=== PATIENT | male | born 1940 | race Caucasian/White ===

== ENCOUNTER 2020-06-09 13:31 | Inpatient (IN) ==
[2020-06-09] MEDS ORDERED: Naloxone 0.4 MG/ML INJ IVP PRN (16:33)
[2020-06-09] MEDS ORDERED: Perflutren Lipid Microsphere 1.3 ML in 0.9 % Sodium Chloride 8.7 ML IVP PRN (16:42)
[2020-06-09] MEDS ORDERED: Nitroglycerin 0.4 MG TAB.SUBL SL PRN (16:45)
[2020-06-09] MEDS ORDERED: *HR* Dextrose 50 % in Water (Vial) 50 ML VIAL IVP PRN (18:53)
[2020-06-09] MEDS ORDERED: D5% in Water 1,000 ML IVC PRN (18:53)
[2020-06-09] MEDS ORDERED: Dextrose Gel 15 GM/37.5 ML TUBE PO PRN ×2 (18:53)
[2020-06-09] MEDS ORDERED: Furosemide 20 MG/2 ML VIAL IVP ONE (20:00)
[2020-06-09] MEDS ORDERED: Insulin LISPRO 300 UNITS/3 ML VIAL SUBQ SCH (21:00)
[2020-06-09] MEDS: rOPINIRole 0.25 MG TABLET PO SCH (21:31)
[2020-06-09] MEDS ORDERED: Melatonin 3 MG TABLET PO PRN (21:35)
[2020-06-10 02:45] LABS: Basophils % 0.3 %; Eosinophils # 0.1 K/mcL (0.0-0.6); Eosinophils % 0.7 %; Hematocrit 37.5 % (37.5-50.1); Hemoglobin 11.8 g/dL (12.9-16.9); Immature Granulocytes % 0.3 % (0-4); Lymphocytes # 1.8 K/mcL (0.6-4.6); Lymphocytes % 12.7 %; Mean Corpuscular HGB Conc 31.5 g/dL (31.6-35.5); Mean Corpuscular Hemoglobin 27.8 pg (28.0-33.3); Mean Corpuscular Volume 88.4 fL (83.0-100.0); Monocytes # 1.4 K/mcL (0.0-1.3); Monocytes % 9.9 %; Neutrophils # 10.6 K/mcL (1.6-8.9); Platelet Count 215 K/mcL (140-400); Red Blood Count 4.24 M/mcL (4.19-5.50); Red Cell Distribution Width 14.3 % (11.5-14.5); Segmented Neutrophils % 76.1 %; White Blood Count 13.9 K/mcL (4.3-11.1)
[2020-06-10 02:53] LABS: INR 1.4; Prothrombin Time 15.8 Seconds (9.4-12.1)
[2020-06-10 02:56] LABS: Activated Partial Thrombo Time 27.7 Seconds (26.0-36.0)
[2020-06-10 03:07] LABS: Calcium 9.3 mg/dL (8.6-10.3)
[2020-06-10] MEDS ORDERED: *HR* Heparin 5,000 UNIT/ML VIAL IVP PRN (03:17)
[2020-06-10] MEDS: Heparin 25,000UNIT/250ML 1/2NS 25,000 UNIT/250 ML IV.SOLN IVC SCH (04:20)
[2020-06-10 04:44] LABS: INR 1.4; Prothrombin Time 16.2 Seconds (9.4-12.1)
[2020-06-10 04:47] LABS: Heparin anti-factor XA UFH < 0.04 IU/mL (0.30-0.70)
[2020-06-10] MEDS: Insulin LISPRO 300 UNITS/3 ML VIAL SUBQ SCH ×5 (05:20→21:09)
[2020-06-10] MEDS ORDERED: *HR* Heparin 5,000 UNIT/ML VIAL SQ SCH (06:00)
[2020-06-10] MEDS ORDERED: Insulin LISPRO 300 UNITS/3 ML VIAL SUBQ SCH (07:30)
[2020-06-10] MEDS ORDERED: NON-FORMULARY MEDICATION 1 EACH EACH (Ezetimibe [Zetia] 10 MG Tablet) PO SCH (09:00)
[2020-06-10] MEDS ORDERED: Furosemide 40 MG/4 ML VIAL IVP SCH (09:00)
[2020-06-10] MEDS: carvediloL 6.25 MG TABLET PO SCH ×2 (09:10→15:55)
[2020-06-10] MEDS: Finasteride 5 MG TABLET PO SCH (09:17)
[2020-06-10] MEDS: Gabapentin 300 MG CAPSULE PO SCH (09:17)
[2020-06-10] MEDS: Aspirin Enteric Coated 81 MG Tablet PO SCH (09:17)
[2020-06-10] MEDS: *HR* Heparin 5,000 UNIT/ML VIAL IVP PRN (14:08)
[2020-06-10] MEDS ORDERED: Furosemide 40 MG/4 ML VIAL IVP ONE (15:40)
[2020-06-10] MEDS: Furosemide 40 MG TABLET PO SCH (15:55)
[2020-06-10 16:31] LABS: Creatinine,Urine 104 mg/dL
[2020-06-10] MEDS: rOPINIRole 0.25 MG TABLET PO SCH (21:08)
[2020-06-11] MEDS: Heparin 25,000UNIT/250ML 1/2NS 25,000 UNIT/250 ML IV.SOLN IVC SCH ×2 (01:24→19:51)
[2020-06-11 02:09] LABS: Hematocrit 37.1 % (37.5-50.1); Hemoglobin 12.1 g/dL (12.9-16.9); Mean Corpuscular HGB Conc 32.6 g/dL (31.6-35.5); Mean Corpuscular Hemoglobin 28.6 pg (28.0-33.3); Mean Corpuscular Volume 87.7 fL (83.0-100.0); Platelet Count 245 K/mcL (140-400); Red Blood Count 4.23 M/mcL (4.19-5.50); Red Cell Distribution Width 14.1 % (11.5-14.5); White Blood Count 10.2 K/mcL (4.3-11.1)
[2020-06-11 02:29] LABS: BUN/Creatinine Ratio 30 (6-26); Blood Urea Nitrogen 34 mg/dL (8-23); Calcium 9.3 mg/dL (8.6-10.3); Carbon Dioxide 27 mEq/L (23-29); Chloride 98 mEq/L (98-107); Glucose 100 mg/dL (70-105); Magnesium 2.1 mg/dL (1.6-2.6); Osmolality,Calculated 286 (280-300); Phosphorous 3.4 mg/dL (2.7-4.5); Potassium 3.7 mEq/L (3.5-5.1); Sodium 134 mEq/L (136-145); eGFR For African Americans > 60 (> 60); eGFR For Non-African Americans > 60 (> 60)
[2020-06-11] MEDS: *HR* Heparin 5,000 UNIT/ML VIAL IVP PRN (03:06)
[2020-06-11] MEDS: Insulin LISPRO 300 UNITS/3 ML VIAL SUBQ SCH ×3 (03:17→17:07)
[2020-06-11] MEDS: Aspirin Enteric Coated 81 MG Tablet PO SCH (08:36)
[2020-06-11] MEDS: Gabapentin 300 MG CAPSULE PO SCH (08:36)
[2020-06-11] MEDS: Furosemide 40 MG TABLET PO SCH ×2 (08:36→17:06)
[2020-06-11] MEDS: carvediloL 6.25 MG TABLET PO SCH ×2 (08:36→17:06)
[2020-06-11] MEDS: Finasteride 5 MG TABLET PO SCH (08:36)
[2020-06-11] MEDS: Spironolactone 25 MG TABLET PO SCH (10:39)
[2020-06-11] MEDS: rOPINIRole 0.25 MG TABLET PO SCH (19:50)
[2020-06-12] MEDS: Insulin LISPRO 300 UNITS/3 ML VIAL SUBQ SCH ×4 (01:39→17:21)
[2020-06-12 05:58] LABS: Basophils # 0.1 K/mcL (0.0-0.2); Basophils % 0.6 %; Eosinophils # 0.1 K/mcL (0.0-0.6); Eosinophils % 1.7 %; Hematocrit 35.6 % (37.5-50.1); Hemoglobin 11.4 g/dL (12.9-16.9); Immature Granulocytes % 0.4 % (0-4); Lymphocytes # 1.8 K/mcL (0.6-4.6); Lymphocytes % 21.8 %; Mean Corpuscular Hemoglobin 27.8 pg (28.0-33.3); Mean Corpuscular Volume 86.8 fL (83.0-100.0); Mean Platelet Volume 10.8 fL (9.4-12.4); Monocytes # 0.8 K/mcL (0.0-1.3); Monocytes % 10.2 %; Neutrophils # 5.4 K/mcL (1.6-8.9); Platelet Count 242 K/mcL (140-400); Red Cell Distribution Width 13.9 % (11.5-14.5); Segmented Neutrophils % 65.3 %; White Blood Count 8.2 K/mcL (4.3-11.1)
[2020-06-12 06:25] LABS: BUN/Creatinine Ratio 28 (6-26); Blood Urea Nitrogen 30 mg/dL (8-23); Calcium 9.3 mg/dL (8.6-10.3); Carbon Dioxide 27 mEq/L (23-29); Chloride 97 mEq/L (98-107); Glucose 162 mg/dL (70-105); Osmolality,Calculated 288 (280-300); Potassium 3.5 mEq/L (3.5-5.1); Sodium 134 mEq/L (136-145); eGFR For African Americans > 60 (> 60); eGFR For Non-African Americans > 60 (> 60)
[2020-06-12] MEDS: Finasteride 5 MG TABLET PO SCH (08:20)
[2020-06-12] MEDS: Furosemide 40 MG TABLET PO SCH ×2 (08:20→17:11)
[2020-06-12] MEDS: Spironolactone 25 MG TABLET PO SCH (08:20)
[2020-06-12] MEDS: carvediloL 6.25 MG TABLET PO SCH ×2 (08:20→17:11)
[2020-06-12] MEDS: Gabapentin 300 MG CAPSULE PO SCH (08:20)
[2020-06-12] MEDS: Aspirin Enteric Coated 81 MG Tablet PO SCH (08:20)
[2020-06-12] MEDS ORDERED: Nitroglycerin 1,000 MCG/5 ML VIAL IV ONE (13:21)
[2020-06-12] MEDS ORDERED: 0.9 % Sodium Chloride 2,000 ML ONE (13:21)
[2020-06-12] MEDS ORDERED: *HR* Heparin 10,000 UNIT/10 ML VIAL ONE (13:21)
[2020-06-12] MEDS ORDERED: ISOVUE-370 200 ML INFUS..BTL ONE (13:21)
[2020-06-12] MEDS ORDERED: Heparin 1,000 UNITS/500 mL 500 ML ONE (13:21)
[2020-06-12] MEDS ORDERED: *HR* Midazolam HCl 2 MG/2 ML VIAL ONE (14:04)
[2020-06-12] MEDS ORDERED: *HR* FentaNYL (PF) 100 MCG/2 ML VIAL ONE (14:04)
[2020-06-12] MEDS: rOPINIRole 0.25 MG TABLET PO SCH (21:19)
[2020-06-13 01:09] LABS: Hemoglobin 11.6 g/dL (12.9-16.9); Mean Corpuscular HGB Conc 31.4 g/dL (31.6-35.5); Mean Corpuscular Hemoglobin 28.3 pg (28.0-33.3); Mean Corpuscular Volume 90.2 fL (83.0-100.0); Mean Platelet Volume 9.7 fL (9.4-12.4); Platelet Count 243 K/mcL (140-400); Red Cell Distribution Width 13.7 % (11.5-14.5); White Blood Count 7.1 K/mcL (4.3-11.1)
[2020-06-13 01:29] LABS: BUN/Creatinine Ratio 23 (6-26); Blood Urea Nitrogen 26 mg/dL (8-23); Calcium 9.1 mg/dL (8.6-10.3); Carbon Dioxide 28 mEq/L (23-29); Chloride 97 mEq/L (98-107); Glucose 343 mg/dL (70-105); Osmolality,Calculated 294 (280-300); Potassium 4.2 mEq/L (3.5-5.1); Sodium 133 mEq/L (136-145); eGFR For African Americans > 60 (> 60); eGFR For Non-African Americans > 60 (> 60)
[2020-06-13] MEDS: Gabapentin 300 MG CAPSULE PO SCH (08:38)
[2020-06-13] MEDS: Finasteride 5 MG TABLET PO SCH (08:38)
[2020-06-13] MEDS: carvediloL 6.25 MG TABLET PO SCH (08:38)
[2020-06-13] MEDS: Aspirin Enteric Coated 81 MG Tablet PO SCH (08:38)
[2020-06-13] MEDS: Insulin LISPRO 300 UNITS/3 ML VIAL SUBQ SCH (08:38)
[2020-06-13] MEDS: Spironolactone 25 MG TABLET PO SCH (09:01)
[2020-06-13] MEDS: Furosemide 40 MG TABLET PO SCH (09:01)
[2020-06-13] MEDS ORDERED: Insulin LISPRO 300 UNITS/3 ML VIAL SUBQ SCH ×2 (10:15→11:30)
[2020-06-13 15:23] VITALS: BP 99/63
== END 2020-06-13 16:20 | disposition home or self-care (01) | DRG 280 ==
LOC: 3BNU → SUATTDRO 14:35
PROVIDERS: ADMIT General Practice; ATTEND Internal Medicine